=== PATIENT | male | born 1970 | race Caucasian/White ===

== ENCOUNTER 2019-02-16 21:17 | Observation (INO) | payer OTHER ==
[~2019-02-16] VITALS: Ht 185.4 cm; Wt 95.0 kg
[2019-02-16] MEDS ORDERED: NS 1,000 ML IV ONE (21:30)
[2019-02-16 21:37] LABS: BASO # 0.1 10^3/uL (0.0-0.2); BASO % 0.5 % (0.0-1.0); EOS % 0.3 % (0.0-3.0); HEMATOCRIT 42.4 % (42.0-52.0); HEMOGLOBIN 14.9 g/dl (13.5-17.5); LYMPH # 1.7 10^3/uL (1.5-4.5); LYMPH % 18.6 % (24.0-44.0); MEAN CORPUSCULAR HEMOGLOBIN 31.6 pg (27.0-33.0); MEAN CORPUSCULAR HGB CONC 35.1 g/dl (32.0-36.5); MONO # 0.8 10^3/uL (0.0-0.8); NEUTROPHILS # 6.6 10^3/uL (1.8-7.7); NEUTROPHILS % 71.3 % (36.0-66.0); PLATELET COUNT, AUTOMATED 272 10^3/uL (150-450); RED BLOOD COUNT 4.71 10^6/uL (4.30-6.10); WHITE BLOOD COUNT 9.3 10^3/uL (4.0-10.0)
[2019-02-16 22:02] LABS: ALBUMIN 3.9 GM/DL (3.2-5.2); ALT/SGPT 43 U/L (12-78); AMYLASE 60 U/L (25-115); BILIRUBIN,DIRECT 0.2 MG/DL (0.0-0.2); BILIRUBIN,TOTAL 0.7 MG/DL (0.2-1.0); BLOOD UREA NITROGEN 20 MG/DL (7-18); CALCIUM LEVEL 9.6 MG/DL (8.5-10.1); CARBON DIOXIDE LEVEL 24 MEQ/L (21-32); CHLORIDE LEVEL 106 MEQ/L (98-107); CREATININE FOR GFR 1.09 MG/DL (0.70-1.30); ETHYL ALCOHOL (ETHANOL) 0.023 % (0.000-0.010); GLOMERULAR FILTRATION RATE > 60.0 (>60); GLUCOSE, FASTING 116 MG/DL (70-100); LIPASE 263 U/L (73-393); POTASSIUM SERUM 3.7 MEQ/L (3.5-5.1); SODIUM LEVEL 141 MEQ/L (136-145); TOTAL PROTEIN 7.6 GM/DL (6.4-8.2)
[2019-02-16] MEDS ORDERED: ONDANSETRON 4MG/2ML VIAL (J2405) IV ONE (22:45)
[2019-02-16] MEDS ORDERED: PANTOPRAZOLE 40MG INJ (PROTONIX) (C9113) IV ONE (23:00)
[2019-02-16] MEDS ORDERED: VITACHTA PO (23:54)
[2019-02-16] MEDS ORDERED: PROP1TAB PO (23:54)
[2019-02-17] VITALS (8 sets, daily range): BP systolic 131–144; BP diastolic 75–88
[2019-02-17] MEDS ORDERED: ACETAMINOPHEN TAB 650MG DOSE (2X325MG) PO PRN
[2019-02-17] MEDS ORDERED: ONDANSETRON 4MG/2ML VIAL (J2405) IV PRN ×2 (00:15→00:30)
[2019-02-17] MEDS ORDERED: MULTIVITAMIN -ADULT INJECTION 10 ML, THIAMINE INJection 100 MG, FOLIC ACID 1 MG in NS 1... IV ONE (00:30)
[2019-02-17] MEDS: PANTOPRAZOLE SODIUM 40 MG in D5W 50 ML IV SCH ×5 (01:34→22:21)
--- NOTE | 2019-02-17 07:57 | HPEPDOC ---
General Date of Admission Date of Service: Feb 16, 2019 Chief Complaint The patient is a 48-year-old male admitted with a reason for visit of N/V. Source: Patient History of Present Illness This is a 48 yo male with no pmhx who is on vacation and was drinking beers/guinness mostly when he vomited 2x yesterday. The first episode was dark and patient thought this was the guiness he drank, but the his noted some blood redness and ?small blood clots. he drank some water and vomited again, the second episode, looked like blood, so he came to the ed. He was otherwise in good state of health, no fever, chills, chest pain , sob, weakness, blurry vision or dizziness. currently he only complained of feeling warmer than usual. Of note he always had gerd like feelings, but never got it evaluated. He drinks beers pretty regular-" most days" . ROS - all 14 point ros negative except for what's stated in HPI All vitals, labs and images reviewed Physical exam Gen: NAD, cooperative HEENT: ROS all 14 point ros negative except for what s stated in HPI All vital signs, labs and images reviewed Physical exam Gen- NAD, normal body habitus HEENT- normocephalic, atraumatic, PERRLA, EOMI, normal conjunctiva, neck supple, no lymphadenopathy Cvs nondisplaced pmi, normal s1, s2 , no murmurs, rubs or gallops, no chest wall tenderness, no edema Resp no cough, LCTAB, no wheezes, rhonchi or crackles Abd normal bs, soft , nontender, nondistended, no organomegaly Msk no tenderness, no swelling, no deformity, FROM, no atrophy Neuro no focal deficit , cn2-12 intact, strength 5/5 in all extremities , AOA x3 Psych- cooperative , normal mood and judgement , good insight. Assessment and plan UGIB vital signs are stable PPI drip banana bag ciwa score is 0 ciwa protocol prn ativan for withdrawal symptoms GI consult - pls call in AM bp elevated , but will monitor for now in light of ugib ' guaiac was positive in ed dvt ppx - scd Home Medications Scheduled Finasteride (Propecia) 1 Mg Tablet, 1 MG PO DAILY, (Reported) Multivitamins (Child Chew Vitamin) 1 Each Tab.chew, 2 TAB PO DAILY, (Reported) Allergies Coded Allergies: Sulfa (Sulfonamide Antibiotics) (Verified Allergy, Unknown, 02/16/19) ampicillin (Verified Allergy, Unknown, 02/16/19) bacitracin (Verified Allergy, Unknown, 02/16/19) neomycin (Verified Allergy, Unknown, 02/16/19) polymyxin B (Verified Allergy, Unknown, 02/16/19) Past Medical History Medical History none per patient Surgical History appendectomy knee surgeries - 2 ACLs repair, arhtoscopies x2, left knee replacement left leg compartment syndrome s/p fasciatomy Family History Significant Family History: No pertinent family hx Social History * Smoker: Denies Alcohol: heavy Drugs: denies Psychosocial History: No pertinent psych hx lives with and kids in [facility] , visiting 's family here A-FIB/CHADSVASC A-FIB History Current/History of A-Fib/PAF?: No Current PO Anticoag Therapy: No Age/Risk Factor Scoring CHADSVASC: CHADSVASC Response (Comments) Value Age Risk Factor Age < 65 years old 0 Gender Risk Factor Male 0 Hx of CHF No 0 Hx of HTN No 0 Hx of Stroke/TIA/or VTE No 0 Hx of Diabetes No 0 Hx of Vascular Disease No 0 Total 0 Treatment Treatment ordered: NONE Reason Anticoagulant not given: Not indicated/[id number] Vital Signs Vital Signs Date Time Temp Pulse Resp B/P (MAP) Pulse Ox O2 Delivery O2 Flow Rate FiO2 02/16/19 23:17 98.9 90 18 144/80 (101) 96 02/16/19 21:26 Room Air Laboratory Data Labs 24H Laboratory Tests 2 02/16/19 21:30: Immature Granulocyte % (Auto) 0.3, White Blood Count 9.3, Red Blood Count 4.71, Hemoglobin 14.9, Hematocrit 42.4, Mean Corpuscular Volume 90.0, Mean Corpuscular Hemoglobin 31.6, Mean Corpuscular Hemoglobin Concent 35.1, Red Cell Distribution Width 13.7, Platelet Count 272, Neutrophils (%) (Auto) 71.3H, Lymphocytes (%) (Auto) 18.6L, Monocytes (%) (Auto) 9.0H, Eosinophils (%) (Auto) 0.3, Basophils (%) (Auto) 0.5, Neutrophils # (Auto) 6.6, Lymphocytes # (Auto) 1.7, Monocytes # (Auto) 0.8, Eosinophils # (Auto) 0.0, Basophils # (Auto) 0.1, Nucleated Red Blood Cells % (auto) 0.0, Anion Gap 11, Glomerular Filtration Rate > 60.0, Calcium Level 9.6, Aspartate Amino Transf (AST/SGOT) 38H, Alanine Aminotransferase (ALT/SGPT) 43, Alkaline Phosphatase 81, Total Bilirubin 0.7, Direct Bilirubin 0.2, Total Protein 7.6, Albumin 3.9, Albumin/Globulin Ratio 1.05, Amylase Level 60, Lipase 263, Ethyl Alcohol Level 0.023H CBC/BMP Laboratory Tests 02/16/19 21:30 Red Blood Count 4.71, Mean Corpuscular Volume 90.0, Mean Corpuscular Hemoglobin 31.6, Mean Corpuscular Hemoglobin Concent 35.1, Red Cell Distribution Width 13.7, Neutrophils (%) (Auto) 71.3 H, Lymphocytes (%) (Auto) 18.6 L, Monocytes (%) (Auto) 9.0 H, Eosinophils (%) (Auto) 0.3, Basophils (%) (Auto) 0.5, Neutrophils # (Auto) 6.6, Lymphocytes # (Auto) 1.7, Monocytes # (Auto) 0.8, Eosinophils # (Auto) 0.0, Basophils # (Auto) 0.1 Plan / VTE VTE Prophylaxis Ordered?: Yes VTE Exclusion Mechanical Proph: Other (UGIB) PETE UPTON MD Feb 16, 2019 23:48
[2019-02-17 08:28] LABS: HEMATOCRIT 38.7 % (42.0-52.0); HEMOGLOBIN 13.2 g/dl (13.5-17.5); MEAN CORPUSCULAR HEMOGLOBIN 30.6 pg (27.0-33.0); MEAN CORPUSCULAR HGB CONC 34.1 g/dl (32.0-36.5); MEAN CORPUSCULAR VOLUME 89.8 fl (80.0-96.0); PLATELET COUNT, AUTOMATED 228 10^3/uL (150-450); RED BLOOD COUNT 4.31 10^6/uL (4.30-6.10); WHITE BLOOD COUNT 7.7 10^3/uL (4.0-10.0)
[2019-02-17 08:46] LABS: BLOOD UREA NITROGEN 18 MG/DL (7-18); CALCIUM LEVEL 8.7 MG/DL (8.5-10.1); CARBON DIOXIDE LEVEL 29 MEQ/L (21-32); CHLORIDE LEVEL 107 MEQ/L (98-107); GLOMERULAR FILTRATION RATE > 60.0 (>60); GLUCOSE, FASTING 107 MG/DL (70-100); MAGNESIUM LEVEL 2.2 MG/DL (1.8-2.4); SODIUM LEVEL 141 MEQ/L (136-145)
[2019-02-17] MEDS ORDERED: LORazepam 2 MG/ML VIAL (J2060) IV PRN (09:00)
--- NOTE | 2019-02-17 09:53 | REP ---
The the abdomen and pelvis without IV or bowel contrast for abdominal pain: There are no comparisons. The visualized lung ordonez demonstrate small curvilinear scarring but are otherwise unremarkable. There is hepato steatosis. The gallbladder, pancreas and spleen are normal size and unremarkable. The adrenals, kidneys and abdominal aorta are unremarkable. There is no retroperitoneal adenopathy or mass. The bowel and mesentery are unremarkable. Pelvis: The the patient has an appendectomy. There is no adenopathy or ascites. The pelvic bowel loops are unremarkable. There is degenerative disc disease at L5 S1. There is a Schmorl's node in the inferior endplate of L4. Impression: The patient reportedly has an appendectomy. Otherwise, negative CT of the abdomen and pelvis. Electronically Signed by Amarjit Houston MD 02/17/2019 09:45 A
[2019-02-17] MEDS ORDERED: PROT1TAB2 PO (15:13)
[2019-02-17] MEDS ORDERED: CARA1TAB6 PO (15:13)
--- NOTE | 2019-02-17 16:37 | IPNPDOC ---
Subjective Date Seen The patient was seen on 02/17/19. Subjective Chief Complaint/HPI Patient seen and examined at the bedside. Denies any more bloody emesis. However notes continued nausea. Denies any abdominal pain. Objective Physical Examination General Exam: Positive: Alert, Cooperative, No Acute Distress ENT Exam: Positive: Atraumatic, Mucous membr. moist/pink Neck Exam: Negative: JVD Chest Exam: Positive: Clear to auscultation, Normal air movement Heart Exam: Positive: Rate Normal, Regular Rhythm, Normal S1, Normal S2 Abdomen Exam: Positive: Soft; Negative: Tenderness Extremity Exam: Negative: Tenderness, Swelling Psych Exam: Positive: Oriented x 3 Assessment /Plan Plan/VTE VTE Prophylaxis Ordered?: Yes VTE Exclusion Mechanical Proph: Other (UGIB) Plan Upper GI Bleed CT Abd/Pel with no acute findings B/P and Hgb stable No more episodes of bloody emesis, however did state that he had a dark colored stool. This may be residual Case discussed with GI, we will monitor overnight, and consider EGD in the AM depending on the patient's clinical course. Alcohol Abuse No signs of withdrawal Patient counseled at length about cessation. Verbalized understanding of the same DVT Prophylaxis Ambulation encouraged VS, I&O, 24H, Fishbone Vital Signs/I&O Vital Signs Date Time Temp Pulse Resp B/P (MAP) Pulse Ox O2 Delivery O2 Flow Rate FiO2 02/17/19 16:00 98.2 85 18 137/88 (104) 96 02/16/19 21:26 Room Air I&O- Last 24 Hours up to 6 AM 02/17/19 06:00 Intake Total 50 ml Output Total 700 ml Balance -650 ml Laboratory Data 24H LABS Laboratory Tests 2 02/16/19 21:30: Immature Granulocyte % (Auto) 0.3, White Blood Count 9.3, Red Blood Count 4.71, Hemoglobin 14.9, Hematocrit 42.4, Mean Corpuscular Volume 90.0, Mean Corpuscular Hemoglobin 31.6, Mean Corpuscular Hemoglobin Concent 35.1, Red Cell Distribution Width 13.7, Platelet Count 272, Neutrophils (%) (Auto) 71.3H, Lymphocytes (%) (Auto) 18.6L, Monocytes (%) (Auto) 9.0H, Eosinophils (%) (Auto) 0.3, Basophils (%) (Auto) 0.5, Neutrophils # (Auto) 6.6, Lymphocytes # (Auto) 1.7, Monocytes # (Auto) 0.8, Eosinophils # (Auto) 0.0, Basophils # (Auto) 0.1, Nucleated Red Blood Cells % (auto) 0.0, Anion Gap 11, Glomerular Filtration Rate > 60.0, Calcium Level 9.6, Aspartate Amino Transf (AST/SGOT) 38H, Alanine Aminotransferase (ALT/SGPT) 43, Alkaline Phosphatase 81, Total Bilirubin 0.7, Direct Bilirubin 0.2, Total Protein 7.6, Albumin 3.9, Albumin/Globulin Ratio 1.05, Amylase Level 60, Lipase 263, Ethyl Alcohol Level 0.023H 02/17/19 07:53: Nucleated Red Blood Cells % (auto) 0.0, Anion Gap 5L, Glomerular Filtration Rate > 60.0, Calcium Level 8.7, Blood Urea Nitrogen 18, Creatinine 1.10, Sodium Level 141, Potassium Level 4.0, Chloride Level 107, Carbon Dioxide Level 29, Magnesium Level 2.2 CBC/BMP Laboratory Tests 02/16/19 21:30 Red Blood Count 4.71, Mean Corpuscular Volume 90.0, Mean Corpuscular Hemoglobin 31.6, Mean Corpuscular Hemoglobin Concent 35.1, Red Cell Distribution Width 13.7, Neutrophils (%) (Auto) 71.3 H, Lymphocytes (%) (Auto) 18.6 L, Monocytes (%) (Auto) 9.0 H, Eosinophils (%) (Auto) 0.3, Basophils (%) (Auto) 0.5, Neutrophils # (Auto) 6.6, Lymphocytes # (Auto) 1.7, Monocytes # (Auto) 0.8, Eosinophils # (Auto) 0.0, Basophils # (Auto) 0.1 02/17/19 07:53 Red Blood Count 4.31, Mean Corpuscular Volume 89.8, Mean Corpuscular Hemoglobin 30.6, Mean Corpuscular Hemoglobin Concent 34.1, Red Cell Distribution Width 13.8, Calcium Level 8.7 DIANE TILLMAN MD Feb 17, 2019 16:37
[2019-02-17] MEDS ORDERED: ALPRAZolam 0.25 MG TAB PO SCH (21:00)
[2019-02-18] VITALS: BP 133/79
[2019-02-18] MEDS ORDERED: NS 1,000 ML IV SCH
[2019-02-18] MEDS: PANTOPRAZOLE SODIUM 40 MG in D5W 50 ML IV SCH ×2 (03:37→07:30)
[2019-02-18 04:00] VITALS: BP 122/75
[2019-02-18 05:32] LABS: HEMATOCRIT 38.4 % (42.0-52.0); HEMOGLOBIN 12.9 g/dl (13.5-17.5); MEAN CORPUSCULAR HEMOGLOBIN 31.5 pg (27.0-33.0); MEAN CORPUSCULAR HGB CONC 33.6 g/dl (32.0-36.5); MEAN CORPUSCULAR VOLUME 93.7 fl (80.0-96.0); PLATELET COUNT, AUTOMATED 213 10^3/uL (150-450); WHITE BLOOD COUNT 6.4 10^3/uL (4.0-10.0)
[2019-02-18 05:52] LABS: BLOOD UREA NITROGEN 12 MG/DL (7-18); CALCIUM LEVEL 8.7 MG/DL (8.5-10.1); CARBON DIOXIDE LEVEL 27 MEQ/L (21-32); CHLORIDE LEVEL 107 MEQ/L (98-107); CREATININE FOR GFR 1.18 MG/DL (0.70-1.30); GLOMERULAR FILTRATION RATE > 60.0 (>60); GLUCOSE, FASTING 105 MG/DL (70-100); POTASSIUM SERUM 3.8 MEQ/L (3.5-5.1); SODIUM LEVEL 139 MEQ/L (136-145)
[2019-02-18 07:46] VITALS: BP 133/93
[2019-02-18 08:00] VITALS: BP 133/93
[2019-02-18 11:50] VITALS: BP 122/80
--- NOTE | 2019-02-18 16:40 | DS.PDOC ---
Discharge Summary General Date of Admission Feb 16, 2019 at 21:18 Date of Discharge 02/18/19 Discharge Summary PROCEDURES PERFORMED DURING STAY: None. ADMITTING/DISCHARGE DIAGNOSES: Coffee-ground emesis secondary to vomiting 2/2 alcohol abuse COMPLICATIONS/CHIEF COMPLAINT: Upper Gi Bleed. HISTORY OF PRESENT ILLNESS: . 48-year-old male with no significant PMH presented to the ER with a chief complaint of coffee-ground emesis after consuming abot 30 beers daily for the past 4 days. He denies any history of the same, or any fevers, chills, chest pain, palpitations, or any diarrhea. In the ER, the patient was noted to be hemodynamically stable. He was admitted to the hospitalist service for further evaluation and management. During hospitalization, he was provided IV fluid hydration and started on Protonix. He did not have any other episodes of coffee ground emesis. The patient tolerated a diet without any acute complaints. He did initially have dark-colored stools, however this resolved and he remained hemodynamically stable. GI was contacted, and tentatively scheduled the patient for an EGD today. However, the patient stated that he did not want to wait until the afternoon to get this done as he was traveling back to [facility]. Risks, benefits, alternative options were discussed at length, and the patient verbalized understanding of the same. He has been counseled to return to the ER if he was to have any recurrent symptoms. Lastly, patient has been advised to follow-up with his primary care physician within 7 days and have a GI referral. DISCHARGE MEDICATIONS: Please see below. ALLERGIES: Please see below. PHYSICAL EXAMINATION ON DISCHARGE: VITAL SIGNS: Please see below. General Exam: Positive: Alert, Cooperative, No Acute Distress ENT Exam: Positive: Atraumatic, Mucous membr. moist/pink Neck Exam: Negative: JVD Chest Exam: Positive: Clear to auscultation, Normal air movement Heart Exam: Positive: Rate Normal, Regular Rhythm, Normal S1, Normal S2 Abdomen Exam: Positive: Soft; Negative: Tenderness Extremity Exam: Negative: Tenderness, Swelling Psych Exam: Positive: Oriented x 3 LABORATORY DATA: Please see below. IMAGING: The the abdomen and pelvis without IV or bowel contrast for abdominal pain: There are no comparisons. The visualized lung ordonez demonstrate small curvilinear scarring but are otherwise unremarkable. There is hepato steatosis. The gallbladder, pancreas and spleen are normal size and unremarkable. The adrenals, kidneys and abdominal aorta are unremarkable. There is no retroperitoneal adenopathy or mass. The bowel and mesentery are unremarkable. Pelvis: The the patient has an appendectomy. There is no adenopathy or ascites. The pelvic bowel loops are unremarkable. There is degenerative disc disease at L5 S1. There is a Schmorl's node in the inferior endplate of L4. Impression: The patient reportedly has an appendectomy. Otherwise, negative CT of the abdomen and pelvis. PROGNOSIS: Fair ACTIVITY: As tolerated. DIET: As tolerated DISCHARGE PLAN: DISPOSITION: Home, Self-Care. DISCHARGE INSTRUCTIONS: Follow up with primary care physician within 7 days, and obtain GI referral. Return to the ER for any acute emergencies. DISCHARGE CONDITION: Stable. TIME SPENT ON DISCHARGE: Greater than 30 minutes. Vital Signs/I&Os Vital Signs Date Time Temp Pulse Resp B/P (MAP) Pulse Ox O2 Delivery O2 Flow Rate FiO2 02/18/19 11:50 97.2 75 16 122/80 (94) 98 02/16/19 21:26 Room Air I&O- Last 24 Hours up to 6 AM 02/18/19 06:00 Intake Total 920 ml Output Total 325 ml Balance 595 ml Laboratory Data Labs 24H Laboratory Tests 2 02/18/19 04:55: Nucleated Red Blood Cells % (auto) 0.0, Anion Gap 5L, Glomerular Filtration Rate > 60.0, Blood Urea Nitrogen 12, Creatinine 1.18, Sodium Level 139, Potassium Level 3.8, Chloride Level 107, Carbon Dioxide Level 27, Calcium Level 8.7 CBC/BMP Laboratory Tests 02/18/19 04:55 Red Blood Count 4.10 L, Mean Corpuscular Volume 93.7, Mean Corpuscular Hemoglobin 31.5, Mean Corpuscular Hemoglobin Concent 33.6, Red Cell Distribution Width 13.8, Calcium Level 8.7 Discharge Medications Scheduled Finasteride (Propecia) 1 Mg Tablet, 1 MG PO DAILY, (Reported) Multivitamins (Child Chew Vitamin) 1 Each Tab.chew, 2 TAB PO DAILY, (Reported) Pantoprazole Sodium (Protonix) 40 Mg Tablet.dr, 1 TAB PO DAILY Sucralfate (Carafate) 1 Gm Tablet, 1 TAB PO QID Allergies Coded Allergies: Sulfa (Sulfonamide Antibiotics) (Verified Allergy, Unknown, 02/16/19) ampicillin (Verified Allergy, Unknown, 02/16/19) bacitracin (Verified Allergy, Unknown, 02/16/19) neomycin (Verified Allergy, Unknown, 02/16/19) polymyxin B (Verified Allergy, Unknown, 02/16/19) DIANE TILLMAN MD Feb 18, 2019 16:40
== END 2019-02-18 12:06 | disposition home or self-care (01) ==
LOC: M ED 21:17 → M ED INP 21:18 → M PCU 02-17 01:07
PROVIDERS: ADMIT Internal Medicine; ATTEND Internal Medicine
DX: K92.0 Hematemesis (principal); F10.10 Alcohol abuse, uncomplicated; Z79.899 Other long term (current) drug therapy; Z88.2 Allergy status to sulfonamides; Z88.1 Allergy status to other antibiotic agents
CPT/HCPCS: 36415; 74176; 80048; 80076; 82150; 83690; 83735; 85025; 85027; 86850; 86900; 86901; 93041; 96361; 96374; 96375; 96376; 99285; C9113; G0480; J2405; J3411